=== PATIENT | female | born 1945 | race Caucasian/White ===

== ENCOUNTER 2018-10-13 10:00 | Day surgery (SDC) | payer OTHER, BC ==
[2018-10-13 10:17] LABS: Absolute Lymphocytes (CBC) 1.9 K/uL (0.7-4.9); Absolute Monocytes 0.5 K/uL (0.1-1.3); Absolute Neutrophil 3.3 K/uL (1.8-8.0); Basophils % 1.3 % (0-1.3); Hematocrit 39.5 % (36.0-45.0); Lymphocytes % 32.2 % (15.3-44.8); MCH 30.2 pg (27.0-35.0); MCV 88.1 fL (80-100); MPV 9.4 fL (7.6-11.3); Monocytes % 8.7 % (3.3-12.3); RBC Red Blood Cell Count 4.49 M/uL (3.86-4.86)
[2018-10-13] MEDS ORDERED: CEFAZOLIN 1GM (PREMIX IV) 1 GM/50 ML BAG ONE (10:20)
--- OUTSIDE RECORDS SUMMARY | 2018-10-13 10:20 | XMS REPORT | Clinical Summary ---
:1945 Author Organization [facility] Address [address] [place] [address] Care Team Providers Name Role Phone Asked, No Pcp Primary Care Provider Unavailable Allergies Active Allergy Reactions Severity Noted Date Comments Promethazine Shortness Of Breath High 05/04/2018 Sulfa (Sulfonamide Hives 05/04/2018 Antibiotics) Trazodone Shortness Of Breath High 05/04/2018 Zolpidem Other (See Comments) 05/04/2018 Makes her agitated and hyper Medications Medication Sig Dispensed Refills Start End Date Status Date amLODIPine (NORVASC) Take 2.5 mg by 0 Active 2.5 mg tablet mouth every morning. atorvastatin Take 10 mg by 0 Active (LIPITOR) 10 MG mouth nightly. tablet levomefolate calcium Take by mouth 0 Active 15 mg tablet every evening. dexlansoprazole Take 60 mg by 0 Active (DEXILANT) 60 mg mouth every capsule morning. FLUoxetine (PROzac) Take 20 mg by 0 Active 20 MG capsule mouth every morning. losartan-hydrochloro Take 1 tablet by 0 Active thiazide (HYZAAR) mouth nightly. 100-12.5 mg per tablet raloxifene (EVISTA) Take 60 mg by 0 Active 60 mg tablet mouth nightly. cyanocobalamin 1,000 Inject 1,000 mcg 0 Active mcg/mL injection into the shoulder, thigh, or buttocks every 30 (thirty) days. acetaminophen-codein Take 1 tablet by 40 tablet 0 05/09/20 Discontinued e (TYLENOL WITH mouth every 4 8 18 CODEINE #3) 300-30 (four) hours as mg per tablet needed for moderate pain for up to 7 days. traMADol (ULTRAM) 50 Take 1 tablet (50 30 tablet 0 05/09/20 Discontinued mg tablet mg total) by 8 18 mouth every 6 (six) hours as needed for moderate pain for up to 7 days. polyethylene glycol Take 17 g by 30 packet 0 05/09/20 Discontinued (MIRALAX) 17 gram mouth 2 (two) 8 18 packet times a day as needed for constipation for up to 30 days. traMADol (ULTRAM) 50 Take 1 tablet (50 40 tablet 0 05/23/20 mg tablet mg total) by 8 18 mouth every 6 (six) hours for 14 days. traMADol (ULTRAM) 50 Take 1 tablet (50 30 tablet 0 05/16/20 mg tablet mg total) by 8 18 mouth every 6 (six) hours as needed for moderate pain for up to 7 days. polyethylene glycol Take 17 g by 60 packet 0 06/08/20 (MIRALAX) 17 gram mouth 2 (two) 8 18 packet times a day for 30 days. polyethylene glycol Take 17 g by 30 packet 0 06/08/20 (MIRALAX) 17 gram mouth 2 (two) 8 18 packet times a day as needed for constipation for up to 30 days. acetaminophen-codein Take 1 tablet by 40 tablet 0 05/16/20 e (TYLENOL WITH mouth every 4 8 18 CODEINE #3) 300-30 (four) hours as mg per tablet needed for moderate pain for up to 7 days. Active Problems Problem Noted Date S/P abdominal surgery, follow-up exam 05/23/2018 Ventral hernia without obstruction or gangrene 05/06/2018 Encounters Date Type Specialty Care Team Description 05/20/2018 Office Visit General Surgery Rika, Ventral hernia without obstruction or gangrene (Primary Dx); Larry León MD S/P abdominal surgery, follow-up exam 05/06/2018 Anesthesia Event General Surgery Mya Silva, SR. MERCHANDISE PLANNER 05/06/2018 Surgery General Surgery Rika, LAPAROSCOPIC VENTRAL Larry León MD HERNIA REPAIR 05/06/2018 - Hospital Encounter General Ramiro Meléndez, 05/09/2018 Larry León MD 05/04/2018 Pre-Admit Testing Pre-Admission Rika, Preop testing Appointment Testing Larry León MD (Primary Dx) 04/01/2018 Office Visit General Surgery Meléndez, Ventral hernia Larry León MD without obstruction or gangrene (Primary Dx) after 10/12/2017 Family History Medical History Relation Name Comments COPD Father Emphysema Father Heart disease Father Rheum arthritis Mother Relation Name Status Comments Father Mother Social History Tobacco Use Types Packs/Day Years Used Date Former Smoker Cigarettes 1 2 Quit: 1967 Smokeless Tobacco: Never Used Alcohol Use Drinks/Week oz/Week Comments No Sex Assigned at Date Recorded Not on file Job Start Date Occupation Industry Not on file Not on file Not on file Travel History Travel Start Travel End No recent travel history available. Last Filed Vital Signs Vital Sign Reading Time Taken Blood Pressure 157/86 05/09/2018 8:51 AM CDT Pulse 63 05/09/2018 8:51 AM CDT Temperature 36.4 C (97.6 F) 05/09/2018 8:51 AM CDT Respiratory Rate 18 05/09/2018 8:51 AM CDT Oxygen Saturation 96% 05/09/2018 8:51 AM CDT Inhaled Oxygen Concentration - - Weight 69.6 kg (153 lb 8 oz) 05/06/2018 6:07 PM CDT Height 157.5 cm (5' 2") 05/06/2018 6:07 PM CDT Body Mass Index 28.08 05/06/2018 6:07 PM CDT Plan of Treatment Health Maintenance Due Date Last Done Comments BREAST CANCER SCREENING 1996 COLON CANCER SCREENING 1996 SHINGRIX VACCINE (1 of 2) 1996 ZOSTER VACCINE 2006 PNEUMOCOCCAL POLYSACCHARIDE VACCINE AGE 65 AND OVER 2011 PNEUMOCOCCAL-13 2011 INFLUENZA VACCINE 06/02/2018 Implants Implanted Type Area Customer Experience Specialist Device Shelf Model / Identifier Expiration Serial / Date Lot Mesh Hrnia Rpr Ventralex St 3.2in [place] [employer] Lg - [id number] Surgical N/A: N/A [employer] 09/29/2019 [id number] / Implanted: Qty: 1 on 05/06/2018 by Larry Meléndez MD Mesh or / Tissue [id number] [employer] Procedures Procedure Name Priority Date/Time Associated Comments Diagnosis HC COMPLETE BLD COUNT STAT 05/09/2018 6:00 Results for this W/AUTO DIFF AM CDT procedure are in the results section. ZZESTIMATED GFR STAT 05/09/2018 5:42 Results for this AM CDT procedure are in the results section. PHOSPHORUS LEVEL STAT 05/09/2018 5:42 Results for this AM CDT procedure are in the results section. BASIC METABOLIC PANEL STAT 05/09/2018 5:42 Results for this AM CDT procedure are in the results section. ZZESTIMATED GFR Routine 05/08/2018 5:00 Results for this AM CDT procedure are in the results section. HC COMPLETE BLD COUNT Routine 05/08/2018 5:00 Results for this W/AUTO DIFF AM CDT procedure are in the results section. MAGNESIUM LEVEL Routine 05/08/2018 5:00 Results for this AM CDT procedure are in the results section. PHOSPHORUS LEVEL Routine 05/08/2018 5:00 Results for this AM CDT procedure are in the results section. BASIC METABOLIC PANEL Routine 05/08/2018 5:00 Results for this AM CDT procedure are in the results section. MAGNESIUM LEVEL STAT 05/07/2018 6:40 Results for this AM CDT procedure are in the results section. ZZESTIMATED GFR STAT 05/07/2018 6:40 Results for this AM CDT procedure are in the results section. PHOSPHORUS LEVEL STAT 05/07/2018 6:40 Results for this AM CDT procedure are in the results section. BASIC METABOLIC PANEL STAT 05/07/2018 6:40 Results for this AM CDT procedure are in the results section. XR ABDOMEN 1 VW STAT 05/07/2018 3:21 Results for this PORTABLE AM CDT procedure are in the results section. TN AN ELECTIVE Routine 05/06/2018 11:05 ENDOTRACHEAL AIRWAY AM CDT Procedure Note - Tawnya Bautista, - 05/06/2018 11:05 AM CDT Airway Performed by: TAWNYA BAUTISTA Authorized by: TAWNYA BAUTISTA Location: OR Urgency: Elective Difficult Airway: No Preoxygenated with 100% O2: Yes C-spine Precautions Maintained Throughout: Yes Mask Ventilation: Easy mask Final Airway Type: Endotracheal airway Final Endotracheal Airway: ETT Technique Used: Direct laryngoscopy Blade Type: Pereyra Laryngoscope Blade/Videolaryngoscope Blade Size: 2 ETT Size (mm): 7.0 Measured from: Lips ETT to Lips (cm): 21 Placement Verified by: CO2 detection, direct visualization and equal breath sounds Laryngoscopic view: Grade I - full view of glottis Rapid Sequence Induction (RSI): No Modified RSI: No Number of Attempts at Approach: 1 REPAIR, HERNIA, VENTRAL OR 05/06/2018 10:45 AM CDT Hernia of abdominal wall INCISIONAL, LAPAROSCOPIC Case Notes EST 60 MINUTES Special Needs EST 60 MINUTES ECG PRE/POST OP Routine 05/04/2018 11:44 AM Preop testing Results for this CDT procedure are in the results section. ZZESTIMATED GFR Routine 05/04/2018 11:26 AM Results for this CDT procedure are in the results section. COMPREHENSIVE METABOLIC Routine 05/04/2018 11:26 AM Preop testing Results for this PANEL CDT procedure are in the results section. HC COMPLETE BLD COUNT Routine 05/04/2018 11:26 AM Preop testing Results for this W/AUTO DIFF CDT procedure are in the results section. after 10/12/2017 Results CBC with platelet and differential (05/09/2018 6:00 AM CDT)Only the most recent of3 resultswithin the time period is included. WBC 6.82 4.50 - 11.00 k/uL [facility] DEPARTMENT OF PATHOLOGY AND GENOMIC MEDICINE RBC 3.50 (L) 4.20 - 5.50 m/uL [facility] DEPARTMENT OF PATHOLOGY AND GENOMIC MEDICINE HGB 10.4 (L) 12.0 - 16.0 g/dL [facility] DEPARTMENT OF PATHOLOGY AND GENOMIC MEDICINE HCT 31.8 (L) 37.0 - 47.0 % [facility] DEPARTMENT OF PATHOLOGY AND GENOMIC MEDICINE MCV 90.9 82.0 - 100.0 fL [facility] DEPARTMENT OF PATHOLOGY AND GENOMIC MEDICINE MCH 29.7 27.0 - 34.0 pg [facility] DEPARTMENT OF PATHOLOGY AND GENOMIC MEDICINE MCHC 32.7 31.0 - 37.0 g/dL [facility] DEPARTMENT OF PATHOLOGY AND GENOMIC MEDICINE RDW - SD 45.7 37.0 - 55.0 fL [facility] DEPARTMENT OF PATHOLOGY AND GENOMIC MEDICINE MPV 10.9 8.8 - 13.2 fL [facility] DEPARTMENT OF PATHOLOGY AND GENOMIC MEDICINE Platelet count 176 150 - 400 k/uL [facility] DEPARTMENT OF PATHOLOGY AND GENOMIC MEDICINE Nucleated RBC 0.00 /100 WBC [facility] DEPARTMENT OF PATHOLOGY AND GENOMIC MEDICINE Neutrophils 61.9 39.0 - 69.0 % [facility] DEPARTMENT OF PATHOLOGY AND GENOMIC MEDICINE Lymphocytes 24.5 (L) 25.0 - 45.0 % [facility] DEPARTMENT OF PATHOLOGY AND GENOMIC MEDICINE Monocytes 9.1 0.0 - 10.0 % [facility] DEPARTMENT OF PATHOLOGY AND GENOMIC MEDICINE Eosinophils 3.7 0.0 - 5.0 % [facility] DEPARTMENT OF PATHOLOGY AND GENOMIC MEDICINE Basophils 0.4 0.0 - 1.0 % [facility] DEPARTMENT OF PATHOLOGY AND GENOMIC MEDICINE Immature granulocytes 0.4Comment: 0.0 - 1.0 % [facility] DEPARTMENT OF "Immature PATHOLOGY AND GENOMIC granulocytes" MEDICINE (promyelocytes, myelocytes, metamyelocytes) Specimen Blood Performing Organization Address [facility] Phone Number [facility] DEPARTMENT OF PATHOLOGY AND [address] [place] [address] [employer] [facility] Estimated GFR (05/09/2018 5:42 AM CDT)Only the most recent of4 resultswithin the time period is included. GFR Non Af Amer 82 mL/min/1.73 m2 [facility] DEPARTMENT OF PATHOLOGY AND GENOMIC MEDICINE GFR Af Amer >90 mL/min/1.73 m2 [facility] DEPARTMENT OF Comment: PATHOLOGY AND GENOMIC Chronic kidney disease: <60 mL/min/1.73m2 MEDICINE Kidney failure: <15 mL/min/1.73m2 The estimated GFR is calculated from the IDMS-traceable Modification of Diet in Renal Disease Equation. The accuracy of the calculation is poor when the creatinine is normal. Calculated values >90 mL/min/1.73m2 are not reported. This equation has not been validated in children (<18 years), women, the elderly (>70 years), or ethnic groups other than Caucasians and Americans. Specimen Plasma specimen Performing Organization Address [facility] Phone Number [facility] DEPARTMENT OF PATHOLOGY AND [address] [place] [address] Phosphorus level (05/09/2018 5:42 AM CDT)Only the most recent of3 resultswithin the time period is included. Phosphorus 2.2 (L) 2.4 - 4.5 mg/dL [facility] DEPARTMENT OF PATHOLOGY AND GENOMIC MEDICINE Specimen Plasma specimen Performing Organization Address City/[facility] Phone Number [facility] DEPARTMENT OF PATHOLOGY AND [address] [place] [address] Basic metabolic panel (05/09/2018 5:42 AM CDT)Only the most recent of3 resultswithin the time period is included. Sodium 139 135 - 148 mEq/L [facility] DEPARTMENT OF PATHOLOGY AND GENOMIC MEDICINE Potassium 3.7 3.5 - 5.0 mEq/L [facility] DEPARTMENT OF PATHOLOGY AND GENOMIC MEDICINE Chloride 103 98 - 112 mEq/L [facility] DEPARTMENT OF PATHOLOGY AND GENOMIC MEDICINE CO2 24 24 - 31 mEq/L [facility] DEPARTMENT OF PATHOLOGY AND GENOMIC MEDICINE Anion gap 12@ANIO 7 - 15 mEq/L [facility] DEPARTMENT OF PATHOLOGY AND GENOMIC MEDICINE BUN 5 (L) 8 - 23 mg/dL [facility] DEPARTMENT OF PATHOLOGY AND GENOMIC MEDICINE Creatinine 0.7 0.5 - 0.9 mg/dL [facility] DEPARTMENT OF PATHOLOGY AND GENOMIC MEDICINE Glucose 90 65 - 99 mg/dL [facility] DEPARTMENT OF PATHOLOGY AND GENOMIC MEDICINE Calcium 8.4 (L) 8.8 - 10.2 mg/dL [facility] DEPARTMENT OF PATHOLOGY AND GENOMIC MEDICINE Specimen Plasma specimen Performing Organization Address City/[facility] Phone Number [facility] DEPARTMENT OF PATHOLOGY AND [address] [place] [id number] [facility] Magnesium level (05/08/2018 5:00 AM CDT)Only the most recent of2 resultswithin the time period is included. Magnesium 2.1 1.6 - 2.4 mg/dL [facility] DEPARTMENT OF PATHOLOGY AND GENOMIC MEDICINE Specimen Plasma specimen Performing Organization Address City/[facility] Phone Number [facility] DEPARTMENT OF PATHOLOGY AND [address] [place] [phone] [facility] XR Abdomen 1 Vw Portable (05/07/2018 3:21 AM CDT) Narrative Performed At EXAMINATION:XR ABDOMEN 1 VW PORTABLE [facility] CLINICAL HISTORY:nausea emesis COMPARISON:None. IMPRESSION: Nonobstructive bowel gas pattern. No pathologic calcification over the kidneys or expected course of the ureters. No acute osseous abnormalities. Nodular opacity of the right lung base is seen measuring 1.9 cm. Further evaluation with dedicated chest x-ray or CT would be of benefit. [facility]-[id number] Procedure Note Hm Interface, Radiology Results Incoming - 05/07/2018 3:29 AM CDT EXAMINATION: XR ABDOMEN 1 VW PORTABLE CLINICAL HISTORY: nausea emesis COMPARISON: None. IMPRESSION: Nonobstructive bowel gas pattern. No pathologic calcification over the kidneys or expected course of the ureters. No acute osseous abnormalities. Nodular opacity of the right lung base is seen measuring 1.9 cm. Further evaluation with dedicated chest x-ray or CT would be of benefit. [facility]-[id number] Performing Organization Address City/[facility]/Zipcode Phone Number [facility] [address] [place] [address] ECG Pre/Post Op (05/04/2018 11:44 AM CDT) Ventricular rate 63 [facility] MUSE Atrial rate 63 [facility] MUSE [place] interval 154 [facility] M[facility] QRSD interval 82 [facility] M[facility] QT interval 438 [facility] M[facility] QTC interval 448 [facility] MUSE P axis 1 52 [facility] MUSE QRS axis 1 4 [facility] MUSE T wave axis 62 [facility] MUSE EKG impression Normal sinus rhythm-Poor R wave [facility] MUSE progression- Performing Organization Address [facility] Phone Number [facility] MUSE [address] [place] [address] Comprehensive metabolic panel (05/04/2018 11:26 AM CDT) Sodium 140 135 - 148 mEq/L [facility] DEPARTMENT OF PATHOLOGY AND GENOMIC MEDICINE Potassium 3.7 3.5 - 5.0 mEq/L [facility] DEPARTMENT OF PATHOLOGY AND GENOMIC MEDICINE Chloride 101 98 - 112 mEq/L [facility] DEPARTMENT OF PATHOLOGY AND GENOMIC MEDICINE CO2 28 24 - 31 mEq/L [facility] DEPARTMENT OF PATHOLOGY AND GENOMIC MEDICINE Anion gap 11@ANIO 7 - 15 mEq/L [facility] DEPARTMENT OF PATHOLOGY AND GENOMIC MEDICINE BUN 13 8 - 23 mg/dL [facility] DEPARTMENT OF PATHOLOGY AND GENOMIC MEDICINE Creatinine 0.8 0.5 - 0.9 mg/dL [facility] DEPARTMENT OF PATHOLOGY AND GENOMIC MEDICINE Glucose 92 65 - 99 mg/dL [facility] DEPARTMENT OF PATHOLOGY AND GENOMIC MEDICINE Calcium 9.5 8.8 - 10.2 mg/dL [facility] DEPARTMENT OF PATHOLOGY AND GENOMIC MEDICINE Protein 7.0 6.3 - 8.3 g/dL [facility] DEPARTMENT OF Comment: PATHOLOGY AND GENOMIC 4.6-7.0 g/dL MEDICINE 1 week 4.4-7.6 g/dL 7 months-1year5.1-7.3 g/dL 1-2 years5.6-7.5 g/dL >3 years6.0-8.0 g/dL 18-150 6.3-8.3 g/dL Albumin 3.7 3.5 - 5.0 g/dL [facility] DEPARTMENT OF PATHOLOGY AND GENOMIC MEDICINE A/G ratio 1.1 0.7 - 3.8 [facility] DEPARTMENT OF PATHOLOGY AND GENOMIC MEDICINE Alkaline phosphatase 57 35 - 104 U/L [facility] DEPARTMENT OF PATHOLOGY AND GENOMIC MEDICINE AST 23 10 - 35 U/L [facility] DEPARTMENT OF PATHOLOGY AND GENOMIC MEDICINE ALT 19 5 - 50 U/L [facility] DEPARTMENT OF PATHOLOGY AND GENOMIC MEDICINE Total bilirubin 0.4 0.0 - 1.2 mg/dL [facility] DEPARTMENT OF PATHOLOGY AND GENOMIC MEDICINE Specimen Plasma specimen Performing Organization Address City/State/Zipcode Phone Number [facility] DEPARTMENT OF PATHOLOGY AND [address] [place] [address] [employer] MEDICINE after 10/12/2017 Insurance Payer Benefit Plan / Group Subscriber ID Type Phone Address MEDICARE MEDICARE PART A AND B xxxxxxxxxx Medicare [place], [place] BCBS BCBS PAR/TRAD PLAN xxxxxxxxxxxx Indemnity ([place]) [place] [address] Advance Directives Patient has advance care planning documents on file. For more information, please contact:Moris [id number] [place] [address]
--- NOTE | 2018-10-13 10:27 | RAD REPORT ---
EXAM DESCRIPTION: RAD - Chest Pa And Lat (2 Views) - 10/13/2018 9:59 am CLINICAL HISTORY: preop Chest pain. COMPARISON: Chest Single View dated 06/09/2017; Chest Pa And Lat (2 Views) dated 06/07/2017; Chest Singl e View dated 06/07/2017; Chest Pa And Lat (2 Views) dated 02/16/2017 FINDINGS: The lungs are clear. The heart is normal in size. Mild tortuosity of the thoracic aorta. N o displaced fractures. IMPRESSION: No acute or concerning finding suspected.
[2018-10-13] MEDS: Ringers Lactate 1,000 ML IV ONE ×2 (10:55→12:10)
[2018-10-13] MEDS ORDERED: MIDAZOLAM HCL 2 MG/2 ML INJ ONE ×2 (11:00→12:10)
--- NOTE | 2018-10-13 11:40 | EKG ---
Test Date: 2018-10-13 Test Time: 09:44:53 Long Term: CHUY MEASUREMENT RESULTS: Intervals: Rate: 61 OK: 158 QRSD: 90 QT: 442 QTc: 444 V[place]ia: P: 36 OK: 158 QRS: -24 T: 55 INTERPRETIVE STATEMENTS: Normal sinus rhythm Normal ECG Compared to ECG 06/09/2017 08:56:20 Left-axis deviation no longer present Myocardial infarct finding no longer present Electronically Signed On 10-13-18 11:39:26 [facility] by Mychal Link
[2018-10-13] MEDS ORDERED: FENTANYL CITR 100 MCG/2 ML ONE ×2 (12:04→12:53)
[2018-10-13] MEDS ORDERED: LIDOCAINE 1% MPF 5 ML VIAL ONE (12:09)
[2018-10-13] MEDS ORDERED: ROCURONIUM 50 MG/5 ML VIAL IV ONE (12:09)
[2018-10-13] MEDS ORDERED: PROPOFOL 200 MG/20 ML VIAL IV ONE (12:09)
[2018-10-13] MEDS ORDERED: DEXAMETHASONE 10 MG/ML VIAL ONE (12:35)
[2018-10-13] MEDS ORDERED: GLYCOPYRROLATE 0.2 MG/ML SYR ONE (12:37)
[2018-10-13] MEDS ORDERED: ONDANSETRON 4 MG/2 ML VIAL ONE (12:37)
[2018-10-13] MEDS ORDERED: Ringers Lactate 1,000 ML IV ONE (12:49)
[2018-10-13] MEDS ORDERED: NEOSTIGMINE 1 MG/ML -5 ML SYRINGE ONE (12:52)
[2018-10-13] MEDS: MEPERIDINE HCL 50 MG/ML AMP ONE ×10 (13:43→17:20)
[2018-10-13] MEDS: FENTANYL CITR 100 MCG/2 ML ONE ×7 (14:07→15:12)
[2018-10-13] MEDS: HYDROMORPHONE HCL 1 MG/ML INJ ONE ×7 (15:19→16:29)
[2018-10-13] MEDS ORDERED: HYDROMORPHONE HCL 1 MG/ML INJ IV PRN (16:02)
[2018-10-13 17:55] VITALS: BMI 26.9
[2018-10-13] MEDS: NACHLORIDE 0.45% 1,000 ML IV SCH (18:09)
[2018-10-13] MEDS: HYDROMORPHONE HCL 2 MG/ML inj IV PRN (21:58)
--- NOTE | 2018-10-14 02:08 | OP ---
Date of Procedure: 10/13/2018 Surgeon: Krish Vega MD Postoperative Diagnosis: Recurrent ventral hernia. Postoperative Diagnosis: Recurrent ventral hernia. Procedure: Laparoscopic repair of recurrent ventral hernia and lysis of adhesion. Estimated Blood Loss: Minimal. Specimen: Hernia sac and contents. Findings: As above. Anesthesia: General. Complications: None. Disposition: The patient tolerated the procedure in stable condition, taken to recovery in good gene ral condition. Procedure In Detail: The patient was brought to the OR, placed in supine position. General anesthes ia was begun. The patient was prepped and draped in usual sterile fashion. Then, Marcaine 0.5% was infiltrated locally and a 15-blade was used to make a 1 cm left upper quadrant incision. Subcutaneou s tissue was divided. The fascia was identified and divided. A #1 Vicryl stay suture was placed. P eritoneal cavity was entered with sharp and blunt dissection. A 12-mm trocar was placed into the per itoneal cavity under direct vision. Pneumoperitoneum was established and then a 5-mm trocar was plac ed in the left lower quadrant. Laparoscopy revealed extensive adhesion, previously repaired hernia a t the umbilicus, which was lysed with LigaSure and once that was done, it was seen that there was com plete coverage of the hernia at the umbilicus; however, there was approximately a 3 x 4 cm defect rem ained in the epigastrium where the ventral hernia had recurred. Subsequently, a 4-cm incision over t he hernia itself was made. Subcutaneous tissue was divided. A large hernia sac approximately 8 x 10 cm was freed from the surrounding tissue with sharp and blunt dissection, all the way down to the fa scial defect and excised. There was a preperitoneal fat in there, which was excised as well and sent to Pathology as specimen. Then, the primary closure of the fascial defect was done with running #1 PDS suture. Then, pneumoperitoneum was re-established. Another 5-mm trocar was placed in the right lower quadrant and the Bard Marlex mesh balloon system was placed, the oval shaped, large size and th en it was deployed in the standard fashion and then absorbable tackers were used to secure the mesh t o the peritoneal surface with complete coverage in all directions well beyond the margins of the kristopher ia. Subsequently, a balloon component was removed intact and then all trocars were removed under dir ect vision. Stay sutures were tied to each other to reapproximate the fascial defect. Subcutaneous wounds were irrigated. Bleeding was controlled with cautery. A 3-0 chromic was used to approximate the subcutaneous tissue and close the skin. Sterile dressing was applied. The patient was awakened and taken to recovery in good general condition. Discharge Note: The patient will go to day surgery and home when stable. Disposition: Home. Condition: Stable. Discharge Instructions: Resume home meds and diet. Activity as tolerated. No heavy lifting. Remov e outer dressing in 2 days. Shower. Keep wound clean and dry. Keep Steri-Strips on at all times. Follow up in my office in 1 week. Call for appointment. Tylenol No. 3, 1 tablet p.o. q.4 p.r.n. jony n. Abdominal binder as ordered. Incentive spirometry as ordered. /MODL Voice ID: [id number] Report ID: [id number]
[2018-10-14] MEDS: ONDANSETRON 4 MG/2 ML VIAL IV PRN ×2 (05:36→10:51)
[2018-10-14] MEDS: HYDROCODONE/APAP 7.5/325 MG TAB PO PRN ×2 (05:42→23:37)
[2018-10-14] MEDS: NACHLORIDE 0.45% 1,000 ML IV SCH ×2 (08:58→23:22)
[2018-10-14] MEDS ORDERED: INFLUENZA VACCINE (for 3y+) 0.5 ML DOSE IMVAC ONE (09:00)
[2018-10-14] MEDS: HYDROMORPHONE HCL 2 MG/ML inj IV PRN (13:31)
[2018-10-14] MEDS ORDERED: DIPHENHYDRAMINE 50 MG/ML VIAL IV ONE (14:03)
[2018-10-14] MEDS: DOCUSATE NA 100 MG CAP PO SCH (20:13)
--- NOTE | 2018-10-14 20:49 | PN ---
Date of Progress Note: 10/14/2018 Subjective: The patient is awake, alert this morning. Her pain was better, however, she had urinary retention with 400 cc in her bladder. A Osborne was ordered and approximately 400 cc came out. She i s still requiring IV pain medicine. She is tolerating her diet. She is ambulating. Otherwise, she is okay and the pain is mostly in the epigastric region just above the site of the surgery. No nause a or vomiting this morning. Objective: Vital signs: Stable, afebrile. Abdomen: Soft, nondistended, minimal incisional tenderness. Dressing is clean, dry, intact. Assessment: Status post laparoscopic repair of ventral hernia. Recommendation: We will continue parenteral pain med. We are going to try wean down the patient to oral pain medicines. Also, we will get a consult from Dr. Wiggins for Medical Management and we will d iscontinue the Osborne at midnight and if the patient voids in the morning and her pain is controlled, she will be discharged to home. MINDY/INEZL Voice ID: [id number] Report ID: [id number]
--- NOTE | 2018-10-14 20:51 | P.HP ---
Certification for Inpatient Patient admitted to: Inpatient Practitioner: I am a practitioner with admitting privileges, knowledge of patient current condition, hospital course, and medical plan of care. Services: Services provided to patient in accordance with Admission requirements found in Title 42 Section 412.3 of the Code of Federal Regulations Patient History Date of Service: 10/14/18 Reason for admission: UMBILLICAL HERNIA REPAIR History of Present Illness: MS ANTHONY HAS EPIGASTRIC HERNIA FOR WHICH SURGERY FAILED AND PATIENT CAME TO ME FOR IT. I ADVISED RESURGERY AND ASKED HER TO GO TO DR. GUSTAFSON. SHE HAD SURGERY YESTERADY. SHE HAS SOME PAIN IN EPI AFTER SHE TRIED TO VOMIT THIS AM. Allergies hydromorphone [From Dilaudid] Allergy (Verified 10/14/18 14:06) Itching promethazine HCl [From Phenergan] Allergy (Verified 10/13/18 09:31) Hives/Rash Sulfa (Sulfonamide Antibiotics) Allergy (Verified 10/13/18 09:31) Hives/Rash PHENERGEN Allergy (Uncoded 10/13/18 09:31) Shortness of breath Home Medications: Amlodipine [Norvasc*] 2.5 mg PO [id number] 01/18/15 Atorvastatin Calcium [Lipitor*] 10 mg PO BEDTIME 01/18/15 Fluoxetine HCl [Prozac*] 20 mg PO DAILY 01/18/15 Pantoprazole [Protonix Tab*] 40 mg PO DAILY 01/18/15 Raloxifene HCl [Evista*] 60 mg PO DAILY 01/18/15 Cholecalciferol (Vitamin D3) [Vitamin D 1000 Iu Tab] 2,000 unit PO DAILY L.acidoph,Paracasei, B.lactis [Probiotic] 1 each PO DAILY 02/16/17 Levomefolate/Algal Oil [Deplin-Algal Oil 15 mg Capsule] 1 each PO DAILY Losartan/Hydrochlorothiazide [Losartan-Hctz 100-12.5 mg Tab] 1 each PO DAILY Dexlansoprazole [Dexilant] 60 mg PO DAILY 10/13/18 Gabapentin [Neurontin] 100 mg PO TID 10/13/18 - Past Medical/Surgical History Has patient received pneumonia vaccine in the past: Yes Diabetic: No -: HTN -: GERD -: Hernia -: OSTEOPOROSIS -: CHRONIC PAIN (BACK and RIGHT KNEE) -: WATSON'S CYST -: TD -: TONSILLECTOMY -: APPENDECTOMY -: ADENOIDECTOMY - Family History Mother -: Heart disease, Hypertension Notes: RA Father -: Hypertension, Lung disease Notes: emphysema - Social History Smoking Status: Former smoker Alcohol use: No CD- Drugs: No Caffeine use: Yes Place of Residence: Home Review of Systems 10-point ROS is otherwise unremarkable General: Weakness, Malaise Gastrointestinal: Abdominal Pain (POST OP) Physical Examination - Vital Signs Temperature: 98.9 F Blood Pressure: 108/58 Pulse: 87 Respirations: 18 Pulse Ox (%): 93 - Physical Exam General: Alert, Acute distress, Mild distress HEENT: Atraumatic, PERRLA, Mucous membr. moist/pink, EOMI, Sclerae nonicteric Neck: Supple, 2+ carotid pulse no bruit, No LAD, Without JVD or thyroid abnormality Respiratory: Clear to auscultation bilaterally, Normal air movement Cardiovascular: Regular rate/rhythm, Normal S1 S2 Gastrointestinal: Normal bowel sounds, No tenderness Musculoskeletal: No tenderness Integumentary: No rashes Neurological: Normal gait, Normal speech, Normal strength at 5/5 x4 extr, Normal tone, Normal affect Lymphatics: No axilla or inguinal lymphadenopathy Assessment and Plan - Problems (Diagnosis) (1) Postoperative abdominal pain Current Visit: Yes Status: Acute Plan: SHE SHOULD BE ABLE TO GO HOME IN AM SHE IS STABLE. HAS SOME PAIN AND NAUSEA EXPECTED. (2) Nausea Current Visit: Yes Status: Acute - Advance Directives Does patient have a Living Will: Yes Does patient have a Durable POA for Healthcare: Yes
[2018-10-15 04:01] VITALS: BP 126/62; TEMP 99.7
[2018-10-15 05:51] VITALS: O2SAT 95
[2018-10-15] MEDS: DOCUSATE NA 100 MG CAP PO SCH (08:39)
--- NOTE | 2018-10-16 05:49 | DS ---
Date of Discharge: 10/15/2018 Admitting Diagnosis: Status post ventral hernia, repaired laparoscopically. Discharge Diagnosis: Status post ventral hernia, repaired laparoscopically. Consultation Obtained: Dr. Wiggins for Medical Management. Hospital Course: The patient is a 73-year-old female, who underwent the aforementioned procedure. P ostoperatively, she required parenteral pain management. She was admitted and then she developed uri nary retention. Osborne was placed and was removed at midnight last night. Today, she is ambulating, pain control on p.o. pain medication, afebrile. Therefore, patient will be discharged to home. Disposition: Home. Condition: Stable. Discharge Instructions: Resume home medications and diet. Activity as tolerated. No heavy lifting. Keep Steri-Strips on at all times. Abdominal binder was ordered. Tylenol No. 3 one tablet p.o. q. 4 p.r.n. pain. Follow up in my office in 1 week. Call for appointment. MINDY/BENNETT Voice ID: [id number] Report ID: [id number]
== END 2018-10-15 10:20 | disposition home or self-care (01) ==
LOC: OR 10:00 → 2ND 15:47 → OR 10-15 10:20
PROVIDERS: ATTEND Surgery
PROC: 0WUF4JZ Supplement Abdominal Wall with Synthetic Substitute, Percutaneous Endoscopic Approach (ICD-10-PCS; principal; 2018-10-13 11:00)
DX: K43.2 Incisional hernia without obstruction or gangrene (principal); I25.10 Atherosclerotic heart disease of native coronary artery without angina pectoris; M06.9 Rheumatoid arthritis, unspecified; E11.9 Type 2 diabetes mellitus without complications; Z88.6 Allergy status to analgesic agent; Z88.5 Allergy status to narcotic agent; R33.9 Retention of urine, unspecified; I10 Essential (primary) hypertension; K21.9 Gastro-esophageal reflux disease without esophagitis; Z87.891 Personal history of nicotine dependence; R10.9 Unspecified abdominal pain; R11.0 Nausea
CPT/HCPCS: 36415; 44180; 49652; 71046; 80048; 85025; 88302; 93005; J0690; J1100; J1170 ×4; J2175 ×3; J2250 ×2; J2405 ×3; J2704; J2710; J3010 ×4

== ENCOUNTER 2019-01-06 12:01 | Observation (INO) | payer OTHER, BC ==
--- OUTSIDE RECORDS SUMMARY | 2019-01-06 13:05 | XMS REPORT | Clinical Summary ---
:1945 Author Organization [facility] Address [address] [place] [address] Care Team Providers Name Role Phone Asked, [...] 05/06/2018 Anesthesia Event General Surgery Mya Silva, PROPERTY INSURANCE INSPECTOR 05/06/2018 Surgery General Surgery Rika, LAPAROSCOPIC VENTRAL Larry León MD HERNIA REPAIR 05/06/2018 - Hospital Encounter General Ramiro Meléndez, 05/09/2018 Larry León MD 05/04/2018 Pre-Admit Testing Pre-Admission Rika, Preop testing Appointment Testing Larry León MD (Primary Dx) 04/01/2018 Office Visit General Surgery Meléndez, Ventral hernia Larry León MD without obstruction or gangrene (Primary Dx) after 01/05/2018 Family History Medical History Relation Name Comments [...] CANCER SCREENING 1996 COLON CANCER SCREENING 1996 SHINGLES VACCINES (#1) 1996 65+ PNEUMOCOCCAL VACCINE (1 of 2 - PCV13) 2011 PNEUMOCOCCAL POLYSACCHARIDE VACCINE AGE 65 AND OVER 2011 INFLUENZA VACCINE 06/02/2018 Implants Implanted Type Area Cutter Hand Device Shelf Model / Identifier Expiration Serial / Date Lot Mesh Hrnia Rpr Ventralex St 3.2in [place] Ppe Ventrl Lg - [id number] Surgical N/A: N/A [employer] 09/29/2019 [id number] / Implanted: Qty: 1 on 05/06/2018 by Larry Meléndez MD Mesh or / Tissue [id number] [employer] Procedures Procedure Name Priority Date/Time [...] CDT procedure are in the results section. OR AN ELECTIVE Routine 05/06/2018 11:05 ENDOTRACHEAL AIRWAY [...] procedure are in the results section. after 01/05/2018 Results CBC with platelet and differential (05/09/2018 6:00 AM CDT)Only the most recent of3 resultswithin the time period is included. WBC 6.82 4.50 - 11.00 k/uL [facility] DEPARTMENT OF PATHOLOGY AND GENOMIC MEDICINE RBC 3.50 (L) 4.20 - 5.50 m/uL [facility] DEPARTMENT OF PATHOLOGY AND GENOMIC MEDICINE HGB 10.4 (L) 12.0 - 16.0 g/dL [facility] DEPARTMENT OF PATHOLOGY AND GENOMIC MEDICINE HCT 31.8 (L) 37.0 - 47.0 % [facility] DEPARTMENT OF PATHOLOGY AND GENOMIC MEDICINE MCV 90.9 82.0 - 100.0 fL [facility] DEPARTMENT OF PATHOLOGY AND GENOMIC MEDICINE MCH 29.7 27.0 - 34.0 pg [facility] DEPARTMENT OF PATHOLOGY AND GENOMIC MEDICINE MCHC 32.7 31.0 - 37.0 g/dL [facility] DEPARTMENT OF PATHOLOGY AND GENOMIC MEDICINE RDW - SD 45.7 37.0 - 55.0 fL [facility] DEPARTMENT OF PATHOLOGY AND GENOMIC MEDICINE MPV 10.9 8.8 - 13.2 fL [facility] DEPARTMENT OF PATHOLOGY AND GENOMIC MEDICINE Platelet count 176 150 - 400 k/uL [facility] DEPARTMENT OF PATHOLOGY AND GENOMIC MEDICINE Nucleated RBC 0.00 /100 WBC [facility] DEPARTMENT OF PATHOLOGY AND GENOMIC MEDICINE Neutrophils 61.9 39.0 - 69.0 % [facility] DEPARTMENT OF PATHOLOGY AND GENOMIC MEDICINE Lymphocytes 24.5 (L) 25.0 - 45.0 % [facility] DEPARTMENT OF PATHOLOGY AND GENOMIC MEDICINE Monocytes 9.1 0.0 - 10.0 % [facility] DEPARTMENT OF PATHOLOGY AND GENOMIC MEDICINE Eosinophils 3.7 0.0 - 5.0 % [facility] DEPARTMENT OF PATHOLOGY AND GENOMIC MEDICINE Basophils 0.4 0.0 - 1.0 % [facility] DEPARTMENT OF PATHOLOGY AND GENOMIC MEDICINE Immature granulocytes 0.4Comment: 0.0 - 1.0 % [facility] DEPARTMENT OF "Immature PATHOLOGY AND GENOMIC granulocytes" MEDICINE (promyelocytes, myelocytes, metamyelocytes) Specimen Blood Performing Organization Address [facility] Phone Number [facility] DEPARTMENT OF PATHOLOGY AND [address] [place] [address] Estimated GFR (05/09/2018 5:42 AM CDT)Only the most recent of4 resultswithin the time period is included. GFR Non Af Amer 82 mL/min/1.73 m2 [facility] DEPARTMENT OF PATHOLOGY AND GENOMIC MEDICINE GFR Af Amer >90 mL/min/1.73 m2 [facility] DEPARTMENT OF Comment: PATHOLOGY AND GENOMIC [...] Americans. Specimen Plasma specimen Performing Organization Address [facility] Phone Number [facility] DEPARTMENT OF PATHOLOGY AND [address] [place] [address] Phosphorus level (05/09/2018 5:42 AM CDT)Only the most recent of3 resultswithin the time period is included. Phosphorus 2.2 (L) 2.4 - 4.5 mg/dL [facility] DEPARTMENT OF PATHOLOGY AND GENOMIC MEDICINE Specimen Plasma specimen Performing Organization Address City/[facility] Phone Number [facility] DEPARTMENT OF PATHOLOGY AND [address] [place] [address] Basic metabolic panel (05/09/2018 5:42 AM CDT)Only the most recent of3 resultswithin the time period is included. Sodium 139 135 - 148 mEq/L [facility] DEPARTMENT OF PATHOLOGY AND GENOMIC MEDICINE Potassium 3.7 3.5 - 5.0 mEq/L [facility] DEPARTMENT OF PATHOLOGY AND GENOMIC MEDICINE Chloride 103 98 - 112 mEq/L [facility] DEPARTMENT OF PATHOLOGY AND GENOMIC MEDICINE CO2 24 24 - 31 mEq/L [facility] DEPARTMENT OF PATHOLOGY AND GENOMIC MEDICINE Anion gap 12@ANIO 7 - 15 mEq/L [facility] DEPARTMENT OF PATHOLOGY AND GENOMIC MEDICINE BUN 5 (L) 8 - 23 mg/dL [facility] DEPARTMENT OF PATHOLOGY AND GENOMIC MEDICINE Creatinine 0.7 0.5 - 0.9 mg/dL [facility] DEPARTMENT OF PATHOLOGY AND GENOMIC MEDICINE Glucose 90 65 - 99 mg/dL [facility] DEPARTMENT OF PATHOLOGY AND GENOMIC MEDICINE Calcium 8.4 (L) 8.8 - 10.2 mg/dL [facility] DEPARTMENT OF PATHOLOGY AND GENOMIC MEDICINE Specimen Plasma specimen Performing Organization Address City/[facility] Phone Number [facility] DEPARTMENT OF PATHOLOGY AND [address] [place] [id number] [facility] Magnesium level (05/08/2018 5:00 AM CDT)Only the most recent of2 resultswithin the time period is included. Magnesium 2.1 1.6 - 2.4 mg/dL [facility] DEPARTMENT OF PATHOLOGY AND GENOMIC MEDICINE Specimen Plasma specimen Performing Organization Address [facility] Phone Number [facility] DEPARTMENT OF PATHOLOGY AND [address] [place] [phone] [facility] XR Abdomen 1 Vw Portable (05/07/2018 [...] x-ray or CT would be of benefit. [facility]-[id number] Procedure Note Hm Interface, Radiology Results Incoming [...] x-ray or CT would be of benefit. [facility]-[id number] Performing Organization Address City/[facility]/Zipcode Phone Number [facility] [address] [place] [address] ECG Pre/Post Op (05/04/2018 11:44 AM CDT) Ventricular rate 63 [facility] MUSE Atrial rate 63 [facility] M[facility] OR interval 154 [facility] QRSD interval 82 [facility] QT interval 438 [facility] QTC interval 448 [facility] P axis 1 52 [facility] QRS axis 1 4 [facility] T wave axis 62 [facility] EKG impression Normal sinus rhythm-Poor R wave [facility] MUSE progression- Performing Organization Address City/[facility] Phone Number [facility] [address] [place] [address] Comprehensive metabolic panel (05/04/2018 11:26 AM CDT) Sodium 140 135 - 148 mEq/L [facility] DEPARTMENT OF PATHOLOGY AND GENOMIC MEDICINE Potassium 3.7 3.5 - 5.0 mEq/L [facility] DEPARTMENT OF PATHOLOGY AND GENOMIC MEDICINE Chloride 101 98 - 112 mEq/L [facility] DEPARTMENT OF PATHOLOGY AND GENOMIC MEDICINE CO2 28 24 - 31 mEq/L [facility] DEPARTMENT OF PATHOLOGY AND GENOMIC MEDICINE Anion gap 11@ANIO 7 - 15 mEq/L [facility] DEPARTMENT OF PATHOLOGY AND GENOMIC MEDICINE BUN 13 8 - 23 mg/dL [facility] DEPARTMENT OF PATHOLOGY AND GENOMIC MEDICINE Creatinine 0.8 0.5 - 0.9 mg/dL [facility] DEPARTMENT OF PATHOLOGY AND GENOMIC MEDICINE Glucose 92 65 - 99 mg/dL [facility] DEPARTMENT OF PATHOLOGY AND GENOMIC MEDICINE Calcium 9.5 8.8 - 10.2 mg/dL [facility] DEPARTMENT OF PATHOLOGY AND GENOMIC MEDICINE Protein 7.0 6.3 - 8.3 g/dL [facility] DEPARTMENT OF Comment: PATHOLOGY AND GENOMIC [place] 4.6-7.0 g/dL MEDICINE 1 week 4.4-7.6 g/dL 7 months-1year5.1-7.3 g/dL 1-2 years5.6-7.5 g/dL >3 years6.0-8.0 g/dL 18-150 6.3-8.3 g/dL Albumin 3.7 3.5 - 5.0 g/dL [facility] DEPARTMENT OF PATHOLOGY AND GENOMIC MEDICINE A/G ratio 1.1 0.7 - 3.8 [facility] DEPARTMENT OF PATHOLOGY AND GENOMIC MEDICINE Alkaline phosphatase 57 35 - 104 U/L [facility] DEPARTMENT OF PATHOLOGY AND GENOMIC MEDICINE AST 23 10 - 35 U/L [facility] DEPARTMENT OF PATHOLOGY AND GENOMIC MEDICINE ALT 19 5 - 50 U/L [facility] DEPARTMENT OF PATHOLOGY AND GENOMIC MEDICINE Total bilirubin 0.4 0.0 - 1.2 mg/dL [facility] DEPARTMENT OF PATHOLOGY AND GENOMIC MEDICINE Specimen Plasma specimen Performing Organization Address City/State/Zipcode Phone Number [facility] DEPARTMENT OF PATHOLOGY AND [address] [place] [address] [employer] [facility] after 01/05/2018 Insurance Payer Benefit Plan / Group Subscriber ID Type Phone Address MEDICARE MEDICARE PART A AND B xxxxxxxxxx Medicare [place], [place] BCBS BCBS PAR/TRAD PLAN xxxxxxxxxxxx Indemnity ([place]) [place] [address] Advance Directives Patient has advance care planning documents on file. For more information, please contact:Moris Vera[address] [place] [address]
[2019-01-06 13:36] VITALS: BMI 27.1
[2019-01-06] MEDS ORDERED: HYDROMORPHONE HCL 1 MG/ML INJ IV PRN (13:42)
[2019-01-06] MEDS ORDERED: NACHLORIDE 0.45% 1,000 ML IV SCH (14:00)
[2019-01-06] MEDS ORDERED: POLYETHYL GLY 3350 17 GM/DOSE PO PRN (14:00)
[2019-01-06] MEDS ORDERED: ONDANSETRON 4 MG (ODT) TAB PO PRN (14:00)
[2019-01-06] MEDS ORDERED: PNEUMOCOCCAL VACCINE 0.5 ML IMVAC ONE (14:00)
[2019-01-06] MEDS ORDERED: ONDANSETRON 4 MG/2 ML VIAL IV PRN (14:00)
[2019-01-06] MEDS ORDERED: DIPHENHYDRAMINE 25 MG TAB/CAP PO PRN (14:00)
[2019-01-06] MEDS ORDERED: INFLUENZA VACCINE (for 3y+) 0.5 ML DOSE IMVAC ONE (14:00)
[2019-01-06] MEDS ORDERED: LOPERAMIDE HCL 2 MG CAPSULE PO PRN (14:00)
[2019-01-06 14:37] LABS: Absolute Lymphocytes (CBC) 2.7 K/uL (0.7-4.9); Absolute Monocytes 0.6 K/uL (0.1-1.3); Absolute Neutrophil 3.6 K/uL (1.8-8.0); Basophils % 1.4 % (0-1.3); Eosinophils % 0.7 % (0-4.4); Hematocrit 39.9 % (36.0-45.0); Lymphocytes % 38.3 % (15.3-44.8); MPV 8.9 fL (7.6-11.3); Monocytes % 8.9 % (3.3-12.3); RBC Red Blood Cell Count 4.53 M/uL (3.86-4.86)
[2019-01-06 14:40] LABS: Protime INR 0.94
[2019-01-06 15:31] LABS: ALT/SGPT 24 U/L (12-78); AST/SGOT 18 U/L (15-37); Albumin 3.9 g/dL (3.4-5.0); Alkaline Phosphatase 80 U/L (45-117); BUN Blood Urea Nitrogen 16 mg/dL (7-18); Bicarbonate 28 mmol/L (21-32); Bilirubin Direct < 0.1 mg/dL (0-0.2); Bilirubin Total 0.4 mg/dL (0.2-1.0); Glucose Level 71 mg/dL (74-106); Magnesium 1.9 mg/dL (1.8-2.4); Phosphorus 3.2 mg/dL (2.5-4.9); Potassium 3.9 mmol/L (3.5-5.1); Protein, Total 7.2 g/dL (6.4-8.2); Sodium Level 143 mmol/L (136-145)
[2019-01-06 16:59] LABS: Urine Appearance CLEAR; Urine Bilirubin NEGATIVE (NEG); Urine Blood NEGATIVE (NEG); Urine Color YELLOW; Urine Glucose NEGATIVE (NEG); Urine Protein NEGATIVE (NEG); Urine Specific Gravity <=1.005 (1.005-1.030); Urine Urobilinogen 0.2 mg/dL (0.2-1.0); Urine pH 5.5 (5.0-7.0)
[2019-01-06 17:10] LABS: Urine Microscopic Reflex ORDER UMIC
--- NOTE | 2019-01-06 17:22 | EKG ---
Test Date: 2019-01-06 Test Time: 14:42:08 Dolphin Researcher: RENATO MEASUREMENT RESULTS: Intervals: Rate: 69 TN: 150 QRSD: 82 QT: 426 QTc: 456 [place]: P: 33 TN: 150 QRS: -15 T: 65 INTERPRETIVE STATEMENTS: Normal sinus rhythm Possible Anterior infarct, age undetermined Abnormal ECG Compared to ECG 10/13/2018 09:44:53 Myocardial infarct finding now present Electronically Signed On 01-06-19 17:21:35 DATABASE REPORTING CONSULTANT by Mychal Link
[2019-01-06 17:44] LABS: Urine RBC NONE SEEN /HPF (NONE SEEN)
[2019-01-06 17:45] LABS: Urine Bacteria <20 /HPF (<20); Urine Culture Reflex Order REFLEXED
[2019-01-06] MEDS: CEFOXITIN/SWI 1gm 1 GM/10 ML SYR IVP SCH (18:10)
[2019-01-06] MEDS: ACETAMINOPHEN 325 MG TABLET PO PRN (18:17)
--- NOTE | 2019-01-06 18:26 | RAD REPORT ---
EXAM DESCRIPTION: CT - Chest Abdomen Pelvis W Cont - 01/06/2019 4:46 pm CLINICAL HISTORY: Chest and abdominal pain status COMPARISON: CT abdomen October 2018 TECHNIQUE: Computed axial tomography of the chest, abdomen and pelvis was obtained. 100 cc Isovue-30 0 was administered intravenously. Oral contrast was not requested. This limits evaluation of bowel. All CT scans are performed using dose optimization technique as appropriate and may include automated exposure control or mA/KV adjustment according to patient size. FINDINGS: A pleural effusion is not present. A pericardial effusion is not noted. The lungs are clear No mediastinal or hilar lymphadenopathy The liver, spleen, pancreas, adrenals and kidneys appear unremarkable. Per clinical history the patient has had an appendectomy. A moderate amount of stool is present throughout the colon. Ventral hernia repair . Cholecystectomy A small hiatal hernia IMPRESSION: No acute abnormality displayed Moderate amount of stool within the colon
--- NOTE | 2019-01-06 18:26 | RAD REPORT ---
EXAM DESCRIPTION: Hector Wilson (2 Views)01/06/2019 5:02 pm CLINICAL HISTORY: Abdominal pain COMPARISON: October 2018 FINDINGS: The lungs appear clear of acute infiltrate. The heart is normal size IMPRESSION: No acute abnormalities displayed
[2019-01-06 21:54] VITALS: O2SAT 97
[2019-01-07] MEDS: CEFOXITIN/SWI 1gm 1 GM/10 ML SYR IVP SCH ×2 (00:38→09:36)
[2019-01-07] MEDS: ACETAMINOPHEN 325 MG TABLET PO PRN (00:41)
[2019-01-07 05:59] LABS: Absolute Lymphocytes (CBC) 2.8 K/uL (0.7-4.9); Absolute Monocytes 0.6 K/uL (0.1-1.3); Absolute Neutrophil 2.2 K/uL (1.8-8.0); Basophils % 1.3 % (0-1.3); Eosinophils % 1.7 % (0-4.4); Hematocrit 36.6 % (36.0-45.0); Lymphocytes % 47.7 % (15.3-44.8); MPV 8.4 fL (7.6-11.3); Monocytes % 10.4 % (3.3-12.3); RBC Red Blood Cell Count 4.17 M/uL (3.86-4.86)
[2019-01-07] MEDS ORDERED: AMLODIPINE 5 MG TAB PO SCH (06:00)
[2019-01-07 06:09] LABS: Magnesium 1.9 mg/dL (1.8-2.4)
[2019-01-07] MEDS: GABAPENTIN 100 MG CAP PO SCH ×2 (07:24→13:36)
[2019-01-07 07:32] LABS: Blood Morphology Comment NOT SEEN (NOT SEEN); Platelet Estimate ADEQ
[2019-01-07] MEDS ORDERED: LOSARTAN POTASSIUM 50 MG TABLET PO SCH (09:00)
[2019-01-07] MEDS ORDERED: HOME MED 1 EA UNK (Dexlansoprazole [Dexilant] 60 MG) PO SCH (09:00)
[2019-01-07] MEDS ORDERED: PANTOPRAZOLE 40MG TABLET PO SCH (09:00)
[2019-01-07] MEDS ORDERED: FLUOXETINE 10 MG CAP PO SCH (09:00)
[2019-01-07] MEDS ORDERED: MAGNESIUM HYDROXIDE 8% 30 ML PO SCH (09:00)
[2019-01-07] MEDS ORDERED: hydroCHLOROthiazide 25 MG TAB PO SCH (09:00)
[2019-01-07 13:32] VITALS: BP 132/64; TEMP 99.2
[2019-01-07] MEDS ORDERED: INFLUENZA VACCINE (for 3y+) 0.5 ML DOSE IMVAC ONE (14:00)
[2019-01-07] MEDS ORDERED: PNEUMOCOCCAL VACCINE 0.5 ML IMVAC ONE (14:00)
--- NOTE | 2019-01-07 14:05 | P.DS ---
Admission Date: 01/06/19 Discharge Date: 01/07/19 Disposition: ROUTINE DISCHARGE Discharge Condition: FAIR Hospital Course: MS. ANTHONY IS A LOT BETTER. SHE HAD A GOOD BM. PAIN IS NOT MUCH ANYLONGER. SHE IS ADVISED TO HAVE BM DAILY AND NOT TWICE A WEEK. REGIMEN IS GIVEN. Vital Signs/Physical Exam: Temp Pulse Resp BP Pulse Ox 99.2 F 77 16 132/64 94 01/07/19 12:00 01/07/19 12:00 01/07/19 12:00 01/07/19 12:00 01/07/19 12:00 Laboratory Data at Discharge: WBC 5.8 K/uL (4.3-10.9) D 01/07/19 05:39 Hgb 12.6 g/dL (12.0-15.0) 01/07/19 05:39 Hct 36.6 % (36.0-45.0) 01/07/19 05:39 Plt Count 238 K/uL (152-406) 01/07/19 05:39 PT 11.1 SECONDS (9.5-12.5) 01/06/19 14:08 INR 0.94 01/06/19 14:08 APTT 28.0 SECONDS (24.3-36.9) 01/06/19 14:08 Sodium 143 mmol/L (136-145) 01/07/19 05:39 Potassium 4.0 mmol/L (3.5-5.1) 01/07/19 05:39 BUN 11 mg/dL (7-18) 01/07/19 05:39 Creatinine 0.77 mg/dL (0.55-1.3) 01/07/19 05:39 Glucose 104 mg/dL (74-106) 01/07/19 05:39 Phosphorus 3.2 mg/dL (2.5-4.9) 01/06/19 14:08 Magnesium 1.9 mg/dL (1.8-2.4) 01/07/19 05:39 Total Bilirubin 0.4 mg/dL (0.2-1.0) 01/06/19 14:08 AST 18 U/L (15-37) 01/06/19 14:08 ALT 24 U/L (12-78) 01/06/19 14:08 Alkaline Phosphatase 80 U/L (45-117) 01/06/19 14:08 Home Medications: Amlodipine [Norvasc*] 2.5 mg PO [id number] 01/18/15 Atorvastatin Calcium [Lipitor*] 10 mg PO BEDTIME 01/18/15 Fluoxetine HCl [Prozac*] 20 mg PO DAILY 01/18/15 Raloxifene HCl [Evista*] 60 mg PO DAILY 01/18/15 Losartan/Hydrochlorothiazide [Losartan-Hctz 100-12.5 mg Tab] 1 each PO DAILY Dexlansoprazole [Dexilant] 60 mg PO DAILY 10/13/18 Gabapentin [Neurontin] 100 mg PO TID 10/13/18 Levomefolate/Algal Oil [Deplin-Algal Oil 15 mg Capsule] 1 cap PO DAILY 01/06/19 Patient Discharge Instructions: MILK OF MAGNESIA TABLE SPOON DAILY AND SURFAK 240 MG DAILY TO KEEP BM DAILY.
[2019-01-07] MEDS ORDERED: ATORVASTATIN 10 MG TAB PO SCH (21:00)
[2019-01-10 12:43] LABS: Vitamin D 1,25-Dihydroxy Total 50 pg/mL (18-72); Vitamin D,1,25-OH2, D2 <8 pg/mL
== END 2019-01-07 14:37 | disposition home or self-care (01) ==
LOC: 2ND 12:59
PROVIDERS: ADMIT Internal Medicine; ATTEND Internal Medicine
DX: R10.31 Right lower quadrant pain (principal); Z88.2 Allergy status to sulfonamides
CPT/HCPCS: 93005; 87040; 87088; 85025 ×2; 87086; 80048 ×2; 36415 ×2; 83735 ×2; 84100; 85610; 80076; 85730; 82652; 84443; 82607; 71260; 74177; 71046; 90670; Q9967; Q2035; G0379; G0009; G0378; 81003; 81015; 87205

== ENCOUNTER 2019-03-02 16:45 | Emergency (ER) | payer OTHER, BC ==
--- OUTSIDE RECORDS SUMMARY | 2019-03-02 16:49 | XMS REPORT | Clinical Summary ---
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 05/06/2018 Surgery General Surgery Rika, LAPAROSCOPIC VENTRAL Larry León MD HERNIA REPAIR 05/06/2018 - Hospital Encounter General Ramiro Meléndez, 05/09/2018 Larry León MD 05/04/2018 Pre-Admit Testing Pre-Admission Rkia, Preop testing Appointment Testing Larry León MD (Primary Dx) 04/01/2018 Office Visit General Surgery Meléndez, Ventral hernia Larry León MD without obstruction or gangrene (Primary Dx) after 03/01/2018 Family History Medical History Relation Name Comments [...] AGE 65 AND OVER 2011 INFLUENZA VACCINE 06/02/2019 Implants Implanted Type Area Thread Marker Device Shelf Model / Identifier Expiration Serial / Date Lot Mesh Hrnia Rpr Ventralex St 3.2in [place] Ppe Ventrl Lg - [id number] Surgical N/A: N/A [employer] 09/29/2019 [id number] / Implanted: Qty: 1 on 05/06/2018 by Larry Meléndez MD Mesh or / Tissue [id number] [employer] Procedures Procedure Name Priority Date/Time [...] CDT procedure are in the results section. FL AN ELECTIVE Routine 05/06/2018 11:05 ENDOTRACHEAL AIRWAY [...] procedure are in the results section. after 03/01/2018 Results CBC with platelet and differential (05/09/2018 6:00 AM CDT)Only the most recent of3 resultswithin the time period is included. WBC 6.82 4.50 - 11.00 k/uL [facility] DEPARTMENT OF PATHOLOGY AND GENOMIC MEDICINE RBC 3.50 (L) 4.20 - 5.50 m/uL [facility] DEPARTMENT OF PATHOLOGY AND GENOMIC MEDICINE HGB 10.4 (L) 12.0 - 16.0 g/dL [facility] DEPARTMENT OF PATHOLOGY AND GENOMIC MEDICINE HCT 31.8 (L) 37.0 - 47.0 % [facility] DEPARTMENT OF PATHOLOGY AND GENOMIC MEDICINE MCV 90.9 82.0 - 100.0 fL [facility] DEPARTMENT OF PATHOLOGY AND GENOMIC MEDICINE MCH 29.7 27.0 - 34.0 pg [facility] DEPARTMENT OF PATHOLOGY AND GENOMIC MEDICINE MCHC 32.7 31.0 - 37.0 g/dL [facility] DEPARTMENT OF PATHOLOGY AND GENOMIC MEDICINE RDW - SD 45.7 37.0 - 55.0 fL [facility] DEPARTMENT OF PATHOLOGY AND GENOMIC MEDICINE MPV 10.9 8.8 - 13.2 fL [facility] DEPARTMENT OF PATHOLOGY AND GENOMIC MEDICINE Platelet count 176 150 - 400 k/uL [facility] DEPARTMENT OF PATHOLOGY AND GENOMIC MEDICINE Nucleated RBC 0.00 /100 WBC [facility] DEPARTMENT OF PATHOLOGY AND GENOMIC MEDICINE Neutrophils 61.9 39.0 - 69.0 % [facility] DEPARTMENT OF PATHOLOGY AND GENOMIC MEDICINE Lymphocytes 24.5 (L) 25.0 - 45.0 % [facility] DEPARTMENT OF PATHOLOGY AND GENOMIC MEDICINE Monocytes 9.1 0.0 - 10.0 % [facility] DEPARTMENT OF PATHOLOGY AND GENOMIC MEDICINE Eosinophils 3.7 0.0 - 5.0 % [facility] DEPARTMENT OF PATHOLOGY AND GENOMIC MEDICINE Basophils 0.4 0.0 - 1.0 % [facility] DEPARTMENT OF PATHOLOGY AND GENOMIC MEDICINE Immature granulocytes 0.4Comment: 0.0 - 1.0 % [facility] DEPARTMENT OF "Immature PATHOLOGY AND GENOMIC granulocytes" MEDICINE (promyelocytes, myelocytes, metamyelocytes) Specimen Blood Performing Organization Address [facility] Phone Number [facility] DEPARTMENT OF PATHOLOGY AND [address] [place] [address] Estimated GFR (05/09/2018 5:42 AM CDT)Only the most recent of4 resultswithin the time period is included. GFR Non Af Amer 82 mL/min/1.73 m2 [facility] DEPARTMENT OF PATHOLOGY AND GENOMIC MEDICINE GFR Af Amer >90 mL/min/1.73 m2 [facility] DEPARTMENT OF Comment: PATHOLOGY AND GENOMIC [...] Americans. Specimen Plasma specimen Performing Organization Address [facility] Phone Number [facility] DEPARTMENT OF PATHOLOGY AND [address] [place] [address] Phosphorus level (05/09/2018 5:42 AM CDT)Only the most recent of3 resultswithin the time period is included. Phosphorus 2.2 (L) 2.4 - 4.5 mg/dL [facility] DEPARTMENT OF PATHOLOGY AND GENOMIC MEDICINE Specimen Plasma specimen Performing Organization Address City/[facility] Phone Number [facility] DEPARTMENT OF PATHOLOGY AND [address] [place] [address] Basic metabolic panel (05/09/2018 5:42 AM CDT)Only the most recent of3 resultswithin the time period is included. Sodium 139 135 - 148 mEq/L [facility] DEPARTMENT OF PATHOLOGY AND GENOMIC MEDICINE Potassium 3.7 3.5 - 5.0 mEq/L [facility] DEPARTMENT OF PATHOLOGY AND GENOMIC MEDICINE Chloride 103 98 - 112 mEq/L [facility] DEPARTMENT OF PATHOLOGY AND GENOMIC MEDICINE CO2 24 24 - 31 mEq/L [facility] DEPARTMENT OF PATHOLOGY AND GENOMIC MEDICINE Anion gap 12@ANIO 7 - 15 mEq/L [facility] DEPARTMENT OF PATHOLOGY AND GENOMIC MEDICINE BUN 5 (L) 8 - 23 mg/dL [facility] DEPARTMENT OF PATHOLOGY AND GENOMIC MEDICINE Creatinine 0.7 0.5 - 0.9 mg/dL [facility] DEPARTMENT OF PATHOLOGY AND GENOMIC MEDICINE Glucose 90 65 - 99 mg/dL [facility] DEPARTMENT OF PATHOLOGY AND GENOMIC MEDICINE Calcium 8.4 (L) 8.8 - 10.2 mg/dL [facility] DEPARTMENT OF PATHOLOGY AND GENOMIC MEDICINE Specimen Plasma specimen Performing Organization Address City/[facility] Phone Number [facility] DEPARTMENT OF PATHOLOGY AND [address] [place] [phone] [facility] Magnesium level (05/08/2018 5:00 AM CDT)Only the most recent of2 resultswithin the time period is included. Magnesium 2.1 1.6 - 2.4 mg/dL [facility] DEPARTMENT OF PATHOLOGY AND GENOMIC MEDICINE Specimen Plasma specimen Performing Organization Address [facility] Phone Number [facility] DEPARTMENT OF PATHOLOGY AND [address] [place] [id number] [facility] XR Abdomen 1 Vw Portable (05/07/2018 3:21 [...] x-ray or CT would be of benefit. [facility]-[id number] Procedure Note Hm Interface, Radiology Results Incoming [...] x-ray or CT would be of benefit. [facility]-[id number] Performing Organization Address City/[facility]/Zipcode Phone Number [facility] [address] [place] [address] ECG Pre/Post Op (05/04/2018 11:44 AM CDT) Ventricular rate 63 [facility] MUSE Atrial rate 63 [facility] MUSE FL interval 154 [facility] M[facility] QRSD interval 82 [facility] M[facility] QT interval 438 [facility] QTC interval 448 [facility] M[facility] P axis 1 52 [facility] M[facility] QRS axis 1 4 [facility] T wave axis 62 [facility] EKG impression Normal sinus rhythm-Poor R wave [facility] MUSE progression- Performing Organization Address City/[facility] Phone Number [facility] MUSE [address] [place] [address] Comprehensive metabolic panel (05/04/2018 11:26 AM CDT) Sodium 140 135 - 148 mEq/L [facility] DEPARTMENT OF PATHOLOGY AND GENOMIC MEDICINE Potassium 3.7 3.5 - 5.0 mEq/L [facility] DEPARTMENT OF PATHOLOGY AND GENOMIC MEDICINE Chloride 101 98 - 112 mEq/L [facility] DEPARTMENT OF PATHOLOGY AND GENOMIC MEDICINE CO2 28 24 - 31 mEq/L [facility] DEPARTMENT OF PATHOLOGY AND GENOMIC MEDICINE Anion gap 11@ANIO 7 - 15 mEq/L [facility] DEPARTMENT OF PATHOLOGY AND GENOMIC MEDICINE BUN 13 8 - 23 mg/dL [facility] DEPARTMENT OF PATHOLOGY AND GENOMIC MEDICINE Creatinine 0.8 0.5 - 0.9 mg/dL [facility] DEPARTMENT OF PATHOLOGY AND GENOMIC MEDICINE Glucose 92 65 - 99 mg/dL [facility] DEPARTMENT OF PATHOLOGY AND GENOMIC MEDICINE Calcium 9.5 8.8 - 10.2 mg/dL [facility] DEPARTMENT OF PATHOLOGY AND GENOMIC MEDICINE Protein 7.0 6.3 - 8.3 g/dL [facility] DEPARTMENT OF Comment: PATHOLOGY AND GENOMIC 4.6-7.0 g/dL MEDICINE 1 week 4.4-7.6 g/dL 7 months-1year5.1-7.3 g/dL 1-2 years5.6-7.5 g/dL >3 years6.0-8.0 g/dL 18-150 6.3-8.3 g/dL Albumin 3.7 3.5 - 5.0 g/dL [facility] DEPARTMENT OF PATHOLOGY AND GENOMIC MEDICINE A/G ratio 1.1 0.7 - 3.8 [facility] DEPARTMENT OF PATHOLOGY AND GENOMIC MEDICINE Alkaline phosphatase 57 35 - 104 U/L [facility] DEPARTMENT OF PATHOLOGY AND GENOMIC MEDICINE AST 23 10 - 35 U/L [facility] DEPARTMENT OF PATHOLOGY AND GENOMIC MEDICINE ALT 19 5 - 50 U/L [facility] DEPARTMENT OF PATHOLOGY AND GENOMIC MEDICINE Total bilirubin 0.4 0.0 - 1.2 mg/dL [facility] DEPARTMENT OF PATHOLOGY AND GENOMIC MEDICINE Specimen Plasma specimen Performing Organization Address City/State/Zipcode Phone Number [facility] DEPARTMENT OF PATHOLOGY AND [address] [place] [address] [employer] MEDICINE after 03/01/2018 Insurance Payer Benefit Plan / Group Subscriber ID Type Phone Address MEDICARE MEDICARE PART A AND B xxxxxxxxxx Medicare [place], [place] BCBS BCBS PAR/TRAD PLAN xxxxxxxxxxxx Indemnity ([place]) [place] [address] Advance Directives Patient has advance care planning documents on file. For more information, please contact:Moris Vera[address] [place] [address]
[2019-03-02] MEDS ORDERED: IBUPROFEN 400 MG TAB ONE (17:28)
[2019-03-02] MEDS ORDERED: HYDROCODONE/APAP 5/325 MG TAB ONE (17:28)
--- NOTE | 2019-03-02 17:44 | RAD REPORT ---
EXAM DESCRIPTION: RAD - Ankle Left 3 View -03/02/2019 5:20 pm CLINICAL HISTORY: Left ankle pain FINDINGS: No fracture or dislocation is seen. No bone or joint abnormality
--- NOTE | 2019-03-02 17:45 | RAD REPORT ---
EXAM DESCRIPTION: RAD - Foot Left 3 View - 03/02/2019 5:25 pm CLINICAL HISTORY: Left Foot pain FINDINGS: No fracture or dislocation is seen. Osteoporosis. Otherwise no bone or joint abnormality
[2019-03-02 18:54] LABS: Absolute Lymphocytes (CBC) 2.6 K/uL (0.7-4.9); Absolute Monocytes 0.8 K/uL (0.1-1.3); Absolute Neutrophil 6.6 K/uL (1.8-8.0); Basophils % 0.8 % (0-1.3); Eosinophils % 1.1 % (0-4.4); Hematocrit 39.1 % (36.0-45.0); Lymphocytes % 25.5 % (15.3-44.8); MPV 8.6 fL (7.6-11.3); Monocytes % 8.2 % (3.3-12.3); RBC Red Blood Cell Count 4.42 M/uL (3.86-4.86)
[2019-03-02] MEDS ORDERED: AMPICILLIN/SULBACT 1.5GM VIAL ONE (18:54)
[2019-03-02] MEDS ORDERED: NA CHLORIDE 0.9% 100 ML IV ONE (18:55)
[2019-03-02 19:02] LABS: Potassium 3.6 mmol/L (3.5-5.1)
--- NOTE | 2019-03-02 19:23 | ER ---
Nurse's Notes [facility] Name: Anastasiia Antonio Age: 73 yrs Sex: Female : 1945 Arrival Date: 03/02/2019 Time: 16:47 Bed 26 Private MD: Westley Wiggins V Diagnosis: Cellulitis and acute lymphangitis of other parts of limb-left foot and ankle;Bitten by cat-left foot Presentation: 03/02 16:53 Presenting complaint: Patient states: "I was just was sitting in my recliner and my aa5 left foot started hurting". pt c/o pain to dorsum of left foot. Denies known injury. 16:53 Transition of care: patient was not received from another setting of care. Onset of aa5 symptoms was March 02, 2019. Care prior to arrival: None. 16:53 Method Of Arrival: Wheelchair aa5 16:53 Acuity: CAROL ANN 4 aa5 16:55 Risk Assessment: Do you want to hurt yourself or someone else? Patient reports no ca1 desire to harm self or others. Initial Sepsis Screen: Does the patient meet any 2 criteria? No. Patient's initial sepsis screen is negative. Does the patient have a suspected source of infection? No. Patient's initial sepsis screen is negative. Historical: - Allergies: 16:53 Sulfa (Sulfonamide Antibiotics); aa5 16:53 Phenergan; aa5 16:53 Morphine; aa5 - PMHx: 16:53 Depression; High Cholesterol; Hypertension; reflux; aa5 - PSHx: 16:53 Cholecystectomy; Appendectomy; aa5 - Immunization history:: Flu vaccine is not up to date. - Social history:: Smoking status: Patient/guardian denies using tobacco. - Ebola Screening: : No symptoms or risks identified at this time. Screenin:55 Abuse screen: Denies threats or abuse. Denies injuries from another. Nutritional ca1 screening: No deficits noted. Tuberculosis screening: No symptoms or risk factors identified. Fall Risk None identified. Assessment: 16:55 General: Appears in no apparent distress. comfortable, Behavior is calm, cooperative, ca1 appropriate for age. Pain: Complains of pain in left foot and anterior aspect of left ankle and medial aspect of left foot Pain currently is 7 out of 10 on a pain scale. Pain began 2 hours ago. Neuro: Level of Consciousness is awake, alert, obeys commands, Oriented to person, place, time, situation. Cardiovascular: Heart tones S1 S2 present Capillary refill < 3 seconds Patient's skin is warm and dry. Respiratory: Airway is patent Respiratory effort is even, unlabored, Respiratory pattern is regular, symmetrical, Breath sounds are clear bilaterally. GI: No deficits noted. No signs and/or symptoms were reported involving the gastrointestinal system. : No deficits noted. No signs and/or symptoms were reported regarding the genitourinary system. EENT: No deficits noted. No signs and/or symptoms were reported regarding the EENT system. Derm: Skin is intact, is healthy with good turgor, Skin is pink, warm \\T\\ dry. Musculoskeletal: Circulation, motion, and sensation intact. Capillary refill < 3 seconds, Range of motion: limited in left foot. 19:52 Reassessment: Patient is alert, oriented x 3, equal unlabored respirations, skin bb warm/dry/pink. wound care completed pt verbalized understanding of and agrees to plan of care pt assisted to exit via wheelchair accompanied by friend. Vital Signs: 16:55 BP 175 / 105; Pulse 78; Resp 16 S; Temp 98.4(O); Pulse Ox 97% on R/A; Weight 67.59 kg aa5 (R); Height 5 ft. 2 in. (157.48 cm) (R); Pain 8/10; 17:36 BP 160 / 86; Pulse 80; Resp 19 S; Pulse Ox 100% on R/A; ca1 19:19 BP 153 / 69; Pulse 80; Resp 16; Temp 98.6; Pulse Ox 97% on R/A; Pain 7/10; vd2 16:55 Body Mass Index 27.25 (67.59 kg, 157.48 cm) aa5 ED Course: 16:47 Patient arrived in ED. mr 16:48 Westley Wiggins MD is Private Physician. mr 16:53 Arm band placed on Patient placed in an exam room, on a stretcher. aa5 16:55 Patient has correct armband on for positive identification. Bed in low position. Call ca1 light in reach. Side rails up X 1. Pulse ox on. NIBP on. Warm blanket given. 16:56 Compa Wynn PA is PHCP. cp 16:56 Chinedu Miles MD is Attending Physician. cp 16:56 Diana Keller, ESTRADA is Primary Nurse. ca1 17:03 Triage completed. aa5 17:21 XRAY Ankle LEFT 3 view In Process Unspecified. EDMS 17:21 XRAY Foot LEFT 3 View In Process Unspecified. EDMS 17:33 No provider procedures requiring assistance completed. ca1 18:35 Inserted saline lock: 22 gauge in right antecubital area, using aseptic technique. ca1 Blood collected. 18:35 First set of blood cultures drawn. ca1 18:55 Second set of blood cultures drawn by me. ca1 19:28 Wound care: to puncture located on left foot was cleaned with with chlorhexadine, bb dressed with Neosporin, band aid, fouzia wrap applied. 19:53 IV discontinued, intact, bleeding controlled, No redness/swelling at site. Pressure bb dressing applied. Administered Medications: 17:12 Drug: HYDROcodone-acetaminophen 5 mg-325 mg 1 tabs Route: PO; ca1 19:51 Follow up: Response: No adverse reaction bb 17:14 Drug: Ibuprofen 800 mg Route: PO; ca1 19:51 Follow up: Response: No adverse reaction bb 18:30 Drug: Unasyn 1.5 grams Route: IVPB; Infused Over: 30 mins; Site: right antecubital; bb 19:30 Follow up: IV Status: Completed infusion; IV Intake: 100ml bb Intake: 19:30 IV: 100ml; Total: 100ml. bb Outcome: 19:22 Discharge ordered by MD. cp 19:54 Discharged to home via wheelchair, with friend. bb 19:54 Condition: stable 19:54 Discharge instructions given to patient, Instructed on discharge instructions, follow up and referral plans. medication usage, wound care, Demonstrated understanding of instructions, follow-up care, medications, wound care, Prescriptions given X 3. 19:55 Patient left the ED. bb Signatures: Dispatcher [employer] GAILCO Gabrielle Young Brenda, RN RN bb Anna Baez, RN RN aa5 [place] [id number] Compa Wynn PA PA cp Acob, Cheryl, RN RN ca1 Corrections: (The following items were deleted from the chart) 21:20 17:33 Patient did not have IV access during this emergency room visit. ca1 ca1
--- NOTE | 2019-03-02 19:23 | EDPHYS ---
Physician Documentation [facility] Name: Anastasiia Antonio Age: 73 yrs Sex: Female : 1945 Arrival Date: 03/02/2019 Time: 16:47 Bed 26 Private MD: Westley Wiggins V ED Physician Chinedu Miles HPI: 03/02 17:05 This 73 yrs old Female presents to ER via Wheelchair with complaints of Foot cp Injury. 17:05 The patient presents with a bite, cat, pain, that is acute, swelling, tenderness. The cp complaints affect the medial aspect of left foot and anterior aspect of left ankle. Onset: The symptoms/episode began/occurred today. Modifying factors: the symptoms are aggravated by movement, weight bearing. Historical: - Allergies: 16:53 Sulfa (Sulfonamide Antibiotics); aa5 16:53 Phenergan; aa5 16:53 Morphine; aa5 - PMHx: 16:53 Depression; High Cholesterol; Hypertension; reflux; aa5 - PSHx: 16:53 Cholecystectomy; Appendectomy; aa5 - Immunization history:: Flu vaccine is not up to date. - Social history:: Smoking status: Patient/guardian denies using tobacco. - Ebola Screening: : No symptoms or risks identified at this time. ROS: 17:10 Constitutional: Negative for body aches, chills, fever, poor PO intake. cp 17:10 Eyes: Negative for injury, pain, redness, and discharge. cp 17:10 ENT: Negative for drainage from ear(s), ear pain, sore throat, difficulty swallowing, difficulty handling secretions. 17:10 Cardiovascular: Negative for chest pain, edema, palpitations. 17:10 Respiratory: Negative for cough, shortness of breath, wheezing. 17:10 MS/extremity: Positive for decreased range of motion, pain, swelling, tenderness, of the left foot and anterior aspect of left ankle, Negative for deformity. 17:10 Skin: Positive for of the medial aspect of left foot, cat bite. 17:10 Neuro: Negative for altered mental status, headache, numbness. 17:10 All other systems are negative. Exam: 17:20 Constitutional: The patient appears in no acute distress, alert, awake, non-toxic, well cp developed, well nourished. 17:20 Head/Face: Normocephalic, atraumatic. cp 17:20 Eyes: Periorbital structures: appear normal, Conjunctiva: normal, no exudate, no injection, Sclera: no appreciated abnormality, Lids and lashes: appear normal, bilaterally. 17:20 ENT: External ear(s): are unremarkable, Nose: is normal, Mouth: Lips: moist, Oral mucosa: moist, Posterior pharynx: Airway: no evidence of obstruction, patent. 17:20 Chest/axilla: Inspection: normal, Palpation: is normal, no crepitus, no tenderness. 17:20 Cardiovascular: Rate: normal, Rhythm: regular. 17:20 Respiratory: the patient does not display signs of respiratory distress, Respirations: normal, no use of accessory muscles, no retractions, no splinting, no tachypnea, labored breathing, is not present, Breath sounds: are clear throughout, no decreased breath sounds, no stridor, no wheezing. 17:20 Abdomen/GI: Exam negative for discomfort, distension, guarding, Inspection: abdomen appears normal. 17:20 Musculoskeletal/extremity: Extremities: grossly normal except: noted in the anterior aspect of left ankle and medial aspect of left foot and dorsum of left foot: erythema, pain, swelling, tenderness, ROM: limited passive range of motion due to pain, in the left ankle, Perfusion: the extremity is normally perfused throughout, Sensation intact. 17:20 Skin: injury, puncture(s), of the medial aspect of left foot, 2 superficial bite wounds. Vital Signs: 16:55 BP 175 / 105; Pulse 78; Resp 16 S; Temp 98.4(O); Pulse Ox 97% on R/A; Weight 67.59 kg aa5 (R); Height 5 ft. 2 in. (157.48 cm) (R); Pain 8/10; 17:36 BP 160 / 86; Pulse 80; Resp 19 S; Pulse Ox 100% on R/A; ca1 19:19 BP 153 / 69; Pulse 80; Resp 16; Temp 98.6; Pulse Ox 97% on R/A; Pain 7/10; vd2 16:55 Body Mass Index 27.25 (67.59 kg, 157.48 cm) aa5 MDM: 16:56 Patient medically screened. cp 17:30 Differential diagnosis: cellulitis, gout, sepsis, lymphangitis. cp 17:39 ED course: Xrays of left ankle negative for fracture and xrays of left foot negative cp for fracture or foreign body. 19:21 Data reviewed: vital signs, nurses notes, lab test result(s), radiologic studies, plain cp films. 19:21 Test interpretation: by ED physician or midlevel provider: plain radiologic studies. 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 Response to treatment: the patient's symptoms have mildly improved after treatment, and as a result, I will discharge patient. ED course: VSS. Pain improved. Labs reviewed and WBC normal, non-toxic appearance. Will discharge to home for continued monitoring. 03/02 18:05 Order name: CBC with Diff; Complete Time: 19:20 cp 03/02 19:20 Interpretation: Within normal limits. cp 03/02 18:05 Order name: BMP; Complete Time: 19:07 cp 03/02 19:07 Interpretation: Normal except: GFR 77. cp 03/02 17:04 Order name: XRAY Ankle LEFT 3 view; Complete Time: 19:07 cp 03/02 17:04 Order name: XRAY Foot LEFT 3 View; Complete Time: 19:07 cp 03/02 18:05 Order name: Blood Culture Adult (2) cp 03/02 18:05 Order name: Wound Care; Complete Time: 19:51 cp 03/02 18:05 Order name: Oscar Wrap; Complete Time: 19:51 cp 03/02 18:17 Order name: IV Saline Lock; Complete Time: 18:38 ca1 Administered Medications: 17:12 Drug: HYDROcodone-acetaminophen 5 mg-325 mg 1 tabs Route: PO; ca1 19:51 Follow up: Response: No adverse reaction bb 17:14 Drug: Ibuprofen 800 mg Route: PO; ca1 19:51 Follow up: Response: No adverse reaction bb 18:30 Drug: Unasyn 1.5 grams Route: IVPB; Infused Over: 30 mins; Site: right antecubital; bb 19:30 Follow up: IV Status: Completed infusion; IV Intake: 100ml bb Disposition: 03/02/19 19:22 Discharged to Home. Impression: Cellulitis and acute lymphangitis of other parts of limb - left foot and ankle, Bitten by cat - left foot. - Condition is Stable. - Discharge Instructions: Cellulitis, Adult, Animal Bite. - Prescriptions for Augmentin 875- 125 mg Oral Tablet - take 1 tablet by ORAL route every 12 hours for 10 days; 20 tablet. Tylenol- Codeine #3 300-30 mg Oral Tablet - take 2 tablets by ORAL route every 6 hours As needed; 12 tablet. Ibuprofen 800 mg Oral Tablet - take 1 tablet by ORAL route every 8 hours As needed take with food; 30 tablet. - Medication Reconciliation Form, Thank You Letter, Antibiotic Education, Prescription Opioid Use form. - Follow up: Private Physician; When: 1 - 2 days; Reason: Recheck today's complaints. - Problem is new. - Symptoms have improved. Signatures: Dispatcher [employer] EDKimber Ortiz RN RN bb Anna Baez RN RN aa5 Compa Wynn PA PA cp Krishna, Diana RN RN ca1 Corrections: (The following items were deleted from the chart) 19:51 18:05 Crutches ordered. [facility] 19:55 19:22 03/02/2019 19:22 Discharged to Home. Impression: Cellulitis and acute bb lymphangitis of other parts of limb - left foot and ankle; Bitten by cat - left foot. Condition is Stable. Forms are Medication Reconciliation Form, Thank You Letter, Antibiotic Education, Prescription Opioid Use. Follow up: Private Physician; When: 1 - 2 days; Reason: Recheck today's complaints. Problem is new. Symptoms have improved. cp
[2019-03-02 20:02] VITALS: BP 153/69; TEMP 98.6; O2SAT 97
== END 2019-03-02 19:55 | disposition home or self-care (01) ==
LOC: ER 16:45
DX: L03.116 Cellulitis of left lower limb (principal); L03.126 Acute lymphangitis of left lower limb; I10 Essential (primary) hypertension; Z88.2 Allergy status to sulfonamides; Z88.5 Allergy status to narcotic agent; Z88.8 Allergy status to other drugs, medicaments and biological substances
CPT/HCPCS: 87040 ×2; 85025; 80048; 36415; 73630; 73610; J0295